=== PATIENT | male | born 1950 | race Caucasian/White ===

== ENCOUNTER 2022-11-27 12:48 | Outpatient (CLI) | payer OTHER, SELFPAY | END 2022-11-27 12:49 | disposition home or self-care (01) | LOC: RAD 12:54 | PROVIDERS: Visit Provider Chiropractor | DX: I50.9 Heart failure, unspecified (principal); I35.1 Nonrheumatic aortic (valve) insufficiency; I51.7 Cardiomegaly; I34.0 Nonrheumatic mitral (valve) insufficiency | CPT/HCPCS: 93306 ==